=== PATIENT | female | born 1980 | race Caucasian/White ===

== ENCOUNTER 2020-01-04 10:05 | Inpatient (IN) ==
[2020-01-04] MEDS ORDERED: SODIUM CHLORIDE 0.9% 1000ML 1,000 ML IV SCH (10:30)
--- NOTE | 2020-01-04 10:30 | Emergency Department Note ---
Impression & Plan Acute adrenal crisis, Pancytopenia, Neutropenia, Rhabdomyolysis ED Provider Note CHIEF COMPLAINT: Unresponsive, hypoglycemia HISTORY OF PRESENTING ILLNESS: This is a 39-year-old female who presents to the emergency department via EMS with report of being found unresponsive this morning in her house, and was reportedly hypoglycemic with a blood sugar level of 22. The patient started on a bag of [id number], and her repeat blood glucose has improved. She is alert and responsive upon arrival to the emergency department. The patient does not have any history of diabetes or other medical problems and she denies taking any prescribed medications. She denies any history of similar symptoms in the past. She has limited memory of the occurrences this morning, and states she remembers getting up to use the bathroom, but does not remember anything else from this morning. She states that she lives at home with her 2 children. She denies any recent illnesses, fevers or chills. She denies any complaints currently and rates her pain 0/10. She denies any headache, neck pain, chest pain, shortness of breath, feeling dizzy, abdominal pain, back pain, nausea or vomiting, urinary complaints, or unusual rash. REVIEW OF SYSTEMS: A complete 10 point review of systems was reviewed with the patient with pertinent positives and negatives as per history of present illness. All else were negative. PAST MEDICAL HISTORY: Patient denies any past medical or surgical history SOCIAL HISTORY: Lives at home with children, she denies tobacco use, alcohol use, or recreational drug use ALLERGIES: Patient denies any known drug allergies PHYSICAL EXAM: CONSTITUTIONAL: Awake, but sluggish to respond. Follows commands without difficulty. Cooperative and in no acute distress. Pale appearing. HEENT: Normocephalic, atraumatic. PERRL, EOMI with no nystagmus. TMs normal with no hemotympanum. Pharynx normal. NECK: Supple, full active range of motion without discomfort. No midline tenderness to palpation of the cervical spine. RESPIRATORY: Clear to auscultation bilaterally with no wheezing, crackles, rhonchi or stridor. Equal expansion bilaterally. CARDIOVASCULAR: Regular rate and rhythm with no murmurs, rubs or gallops. Normal peripheral perfusion. No edema. GASTROINTESTINAL: Soft, nontender, nondistended. No palpable masses or HSM. Bowel sounds present in all quadrants. No CVA tenderness bilaterally. MUSCULOSKELETAL: Full range of motion of all joints without discomfort. INTEGUMENTARY: No rash or other significant dermatologic conditions noted. NEUROLOGIC: Alert and oriented X 4 with normal affect. Cranial nerves II-XII grossly intact, no pronator drift. No focal neurologic deficits noted. 5/5 strength in all 4 extremities, sensation intact to light touch in all 4 extremities. ED COURSE AND MEDICAL DECISION MAKING: CC: Patient presenting with complaint of unresponsive episode, hypoglycemia DIFFERENTIAL DIAGNOSIS: Includes, but not limited to hypoglycemia, electrolyte abnormality, cardiac dysrhythmia, syncope, fall, overdose, adrenal crisis, myxedema coma, rhabdomyolysis, dehydration, acute kidney injury, tickborne illness, among others. INTERPRETATION OF LABS: Pancytopenia and neutropenia, no significant electrolyte abnormalities, mildly elevated creatinine with a normal BUN, AST elevated with a normal ALT, total bilirubin, and alk phos. Total creatinine kinase is significantly elevated. TSH and free T4 are significantly low. Random cortisol level is significantly low. UA appears negative for infection. Ethyl alcohol, acetaminophen, salicylate levels, and urine drug screen are all negative. Lyme IgG/IgM are negative. Anaplasmosis and babesiosis pending. IMAGING: CT head/brain wo con CLINICAL HISTORY: 39 years-old Female with unresponsive episode, possible head injury. Acutely altered mental status. Unresponsive patient. TECHNIQUE: Multiple axial CT images of the head were obtained without contrast. A dose lowering technique was utilized adhering to the principles of ALARA. CT DOSE: 614.27 mGy.cm COMPARISON: None. FINDINGS: No acute intracranial hemorrhage, midline shift, intracranial mass, hydrocephalus, territorial ischemia or abnormal extra-axial collection. The calvarium is intact. The paranasal sinuses, mastoid air cells, and middle ear cavities are clear. IMPRESSION: No acute intracranial abnormality. ----- XR chest 1V portable CLINICAL HISTORY: syncope COMPARISON STUDY: No previous studies for comparison. FINDINGS: Lung volumes are at the lower limits of normal. Lungs are clear. There is no pneumothorax or pleural effusion. Cardiac size is normal. Mediastinal contours are normal. There is no evidence for pulmonary edema. IMPRESSION: No acute cardiopulmonary findings. EKG: Shows a probable sinus rhythm with a rate of 79 bpm, interpretation is limited due to poor data quality, no ST elevation or depression, no ectopy by my interpretation. No previous EKGs available for comparison. MEDICATION RECONCILIATION: I attest that I have personally reviewed the patient's current medication list. INITIAL VITAL SIGNS REVIEW: I reviewed the patient's initial vital signs and interpret them as follows: T: Afebrile; BP: Normotensive; HR: Within normal limit; RR: Within normal limits; Pulse Ox: Within normal limits on room air. MDM SUMMARY: Patient was evaluated at bedside, history and physical exam performed. Patient is awake, but is sluggish and slow to follow commands. She is oriented to self, but is not able to provide much history. No focal neurologic deficits on exam. The patient does appear pale and is noted to have dry skin, she states this is chronic. Cardiac monitoring: An order was placed for continuous cardiac monitoring. The monitor shows a rate of 78 bpm with normal sinus rhythm. EKG reviewed at bedside, which appears to be sinus rhythm with no acute ischemic changes. Orders were placed at bedside for labs including TSH with reflex T4, random cortisol level, and creatinine kinase, as well as acetaminophen, salicylate, medical alcohol, and urine drug screen, serum , IV fluid bolus for hydration, chest x-ray and head CT to evaluate for unresponsive involved. Patient discussed with Dr. Batres, who agrees with my assessment, plan, and disposition. Labs and imaging reviewed as above, numerous lab abnormalities noted including pancytopenia, neutropenia, elevated CK lysis, significantly low TSH and free T4 as well as significantly low cortisol level. Drug screen, acetaminophen, salicylate, and alcohol are all negative. Additional testing for tickborne illnesses, vitamin B12 and folate levels were ordered due to the anemia. X-ray is clear with no findings and CT of the head shows no acute intracranial abnormality. Additional history was obtained from the patient's mother by nursing staff, who reported a history of a pituitary tumor that was removed about 13 years ago. I discussed this with the patient, she states she used to take hydrocortisone and levothyroxine, but she stopped taking these medications some time ago. She states that she moved to this state from [place] about 5 years ago, and she notes that she has not set up with the PCP. I believe she has most likely been off of these medications for the last several years. Given the nonfunctioning thyroid and low cortisol levels with a history of a pituitary tumor, I do suspect the patient is in adrenal crisis. I spoke with Dr. Carbajal, [facility] Hospitalist, who agrees to evaluate the patient for admission. He did request that the patient have an MRI of the brain for further evaluation of the pituitary tumor, this was ordered. Patient reassessed multiple times throughout ED stay, she has remained hemodynamically stable, and continues to remain awake and cooperative. No changes in neuro status on reassessment. The patient was updated on all results and plan for admission, she verbalized understanding and was agreeable to this plan. All questions were answered at this time to the best of my ability. The patient was stable at time of admission. The chart was completed utilizing [employer] Speech voice recognition software. Grammatical errors, random word insertions, pronoun errors, and incomplete sentences are an occasional consequence of this system due to software limitations, ambient noise, and hardware issues. Any formal questions or concerns about the content, text, or information contained within the body of this dictation should be directly addressed to the nurse practitioner for clarification. Past Med/Surg History Social History Smoking Status: Never smoker Hx Alcohol Use: No Hx Substance Use: No Preferred Language: Turkish Communication Ability: Effective Communication Ability Comment: baseline slurred speech Tub Washer Required: No Beliefs That Will Affect Care: None Current Living Situation: Family Current Living Situation Comment: 19 yo and 14 yo sons at home Other Information That Helps Us Care for You: No Feels Safe at Home: Yes Safety Concerns: Feels Safe At This Time Assistive Devices: Glasses Allergies Allergies Allergy/AdvReac Type Severity Reaction Status Date / Time No Known Allergies Allergy Unverified 01/04/20 11:09 Home Meds Home Medications Medication Instructions Recorded Confirmed No Known Home Medications 01/04/20 01/04/20 Results & Data (ED) Vital Signs Vital Signs - 24 hr 01/04/20 10:16 01/04/20 10:31 01/04/20 10:54 Temperature 36.3 C L Temperature Source Oral Pulse Rate 76 Pulse Rate from SpO2 Sensor Respiratory Rate 16 15 Blood Pressure 110/86 91/73 L Blood Pressure Mean 94 77 Pulse Oximetry 99 100 98 Oxygen Delivery Method Room Air Room Air Sepsis Recent Fever Within 48 Hours No Sepsis New/Unexplained Change in Mental Status N/A Sepsis Action Taken by Nursing No Action Required 01/04/20 11:01 01/04/20 11:32 01/04/20 12:01 Temperature Temperature Source Pulse Rate 80 77 72 Pulse Rate from SpO2 Sensor 81 77 73 Respiratory Rate 13 14 14 Blood Pressure 110/82 99/87 L 98/75 L Blood Pressure Mean 84 92 82 Pulse Oximetry 100 100 100 Oxygen Delivery Method Sepsis Recent Fever Within 48 Hours Sepsis New/Unexplained Change in Mental Status Sepsis Action Taken by Nursing 01/04/20 13:00 01/04/20 13:30 01/04/20 14:00 Temperature Temperature Source Pulse Rate 75 76 73 Pulse Rate from SpO2 Sensor 75 77 73 Respiratory Rate 15 11 L 11 L Blood Pressure 98/71 L 96/78 L 91/73 L Blood Pressure Mean 80 81 75 Pulse Oximetry 100 98 99 Oxygen Delivery Method Sepsis Recent Fever Within 48 Hours Sepsis New/Unexplained Change in Mental Status Sepsis Action Taken by Nursing Laboratory Data Result diagrams: 01/04/20 10:15 01/04/20 10:15 Lab Results 01/04/20 01/04/20 01/04/20 Range/Units 10:15 10:15 10:15 WBC 3.06 L (4.8-10.8) K/uL RBC 3.35 L (4.2-5.4) M/uL Hgb 9.9 L (12.0-16.0) g/dL Hct 29.4 L (37-47) % MCV 87.8 (80-100) fL MCH 29.6 (25-34) pg MCHC 33.7 (32-36) g/dL RDW Std Deviation 50.4 H (36.4-46.3) fL RDW Coeff of Lan 15.6 H (11.5-14.5) % Plt Count 87 L (130-400) K/uL MPV 10.5 H (7.4-10.4) fL Immature Gran % (Auto) 0.0 % Neut % (Auto) 27.7 % Lymph % (Auto) 65.7 % Tripp % (Auto) 3.3 % Eos % (Auto) 3.3 % Baso % (Auto) 0.0 % Neut # (Auto) 0.85 L* (1.4-6.5) K/uL Lymph # (Auto) 2.01 (1.2-3.4) K/uL Tripp # (Auto) 0.10 L (0.11-0.59) K/uL Eos # (Auto) 0.10 (0-0.5) K/uL Baso # (Auto) 0.00 (0-0.2) K/uL Immature Gran # (Auto) 0.00 (0.00-0.02) K/uL Platelet Estimate Decreased L (Normal) Sodium 137 (136-145) mmol/L Potassium 3.4 L (3.5-5.1) mmol/L Chloride 107 (98-107) mmol/L Carbon Dioxide 27 (21-32) mmol/L Anion Gap 3.0 (3-11) BUN 11 (7-18) mg/dl Creatinine 1.23 H (0.6-1.2) mg/dl Est Cr Clr Drug Dosing 51.4 ml/min Est GFR ( Amer) 64.0 Est GFR (Non-Af Amer) 55.2 BUN/Creatinine Ratio 9.3 L (10-20) Glucose 160 H (70-99) mg/dl POC Glucose (70-99) mg/dl Calcium 8.5 (8.5-10.1) mg/dl Total Bilirubin 0.4 (0.2-1) mg/dl AST 118 H (15-37) U/L ALT 40 (12-78) U/L Alkaline Phosphatase 36 L (45-117) U/L Total Creatine Kinase 3763 H (26-192) U/L Total Protein 6.7 (6.4-8.2) gm/dl Albumin 3.6 (3.4-5.0) gm/dl Globulin 3.1 (2.5-4.0) gm/dl Albumin/Globulin Ratio 1.2 (0.9-2) Vitamin B12 (193-986) pg/ml Folate (>5.38) ng/ml TSH < 0.005 L (0.300-4.500) uIu/ml Free T4 < 0.10 L (0.8-1.6) ng/dl Prolactin ng/ml HCG, Qual (Negative) Random Cortisol mcg/dl Urine Color Urine Appearance (Clear) Urine pH (4.5-7.5) Ur Specific [place] (1.000-1.030) Urine Protein (Negative) Urine Glucose (UA) (Negative) Urine Ketones (Negative) Urine Blood (Negative) Urine Nitrite (Negative) Urine Bilirubin (Negative) Urine Urobilinogen (Negative) Ur Leukocyte Esterase (Negative) Urine WBC (Auto) (0-5) /hpf Urine RBC (Auto) (0-4) /hpf U Hyaline Cast (Auto) (0-5) /lpf U Epithel Cells (Auto) (0-5) /lpf Urine Bacteria (Auto) (Negative) Salicylates < 1.7 L (2.8-20) mg/dl Urine Opiates Screen (Neg) Ur Methadone, Qual (Neg) Acetaminophen < 2 L (10-30) ug/ml Urine Barbiturates (Neg) Ur Phencyclidine (PCP) (Neg) U Amphetamin/Meth Scrn (Neg) MDMA (Ecstasy) Screen (Neg) U Benzodiazepines Scrn (Neg) Ur Cocaine Metabolite (Neg) U Marijuana (THC) Screen (Neg) Ethyl Alcohol mg/dL (0-3) mg/dl Anaplasma Smear See Comment Lyme Disease IgG Ab (Negative) Lyme Disease IgM Ab (Negative) 01/04/20 01/04/20 01/04/20 Range/Units 10:15 10:17 10:41 WBC (4.8-10.8) K/uL RBC (4.2-5.4) M/uL Hgb (12.0-16.0) g/dL Hct (37-47) % MCV (80-100) fL MCH (25-34) pg MCHC (32-36) g/dL RDW Std Deviation (36.4-46.3) fL RDW Coeff of Lan (11.5-14.5) % Plt Count (130-400) K/uL MPV (7.4-10.4) fL Immature Gran % (Auto) % Neut % (Auto) % Lymph % (Auto) % Tripp % (Auto) % Eos % (Auto) % Baso % (Auto) % Neut # (Auto) (1.4-6.5) K/uL Lymph # (Auto) (1.2-3.4) K/uL Tripp # (Auto) (0.11-0.59) K/uL Eos # (Auto) (0-0.5) K/uL Baso # (Auto) (0-0.2) K/uL Immature Gran # (Auto) (0.00-0.02) K/uL Platelet Estimate (Normal) Sodium (136-145) mmol/L Potassium (3.5-5.1) mmol/L Chloride (98-107) mmol/L Carbon Dioxide (21-32) mmol/L Anion Gap (3-11) BUN (7-18) mg/dl Creatinine (0.6-1.2) mg/dl Est Cr Clr Drug Dosing ml/min Est GFR ( Amer) Est GFR (Non-Af Amer) BUN/Creatinine Ratio (10-20) Glucose (70-99) mg/dl POC Glucose 164 H (70-99) mg/dl Calcium (8.5-10.1) mg/dl Total Bilirubin (0.2-1) mg/dl AST (15-37) U/L ALT (12-78) U/L Alkaline Phosphatase (45-117) U/L Total Creatine Kinase (26-192) U/L Total Protein (6.4-8.2) gm/dl Albumin (3.4-5.0) gm/dl Globulin (2.5-4.0) gm/dl Albumin/Globulin Ratio (0.9-2) Vitamin B12 (193-986) pg/ml Folate (>5.38) ng/ml TSH (0.300-4.500) uIu/ml Free T4 (0.8-1.6) ng/dl Prolactin ng/ml HCG, Qual (Negative) Random Cortisol mcg/dl Urine Color Yellow Urine Appearance Clear (Clear) Urine pH 6.5 (4.5-7.5) Ur Specific [place] 1.009 (1.000-1.030) Urine Protein Negative (Negative) Urine Glucose (UA) 1+ H (Negative) Urine Ketones Trace H (Negative) Urine Blood Negative (Negative) Urine Nitrite Negative (Negative) Urine Bilirubin Negative (Negative) Urine Urobilinogen Negative (Negative) Ur Leukocyte Esterase Trace H (Negative) Urine WBC (Auto) 1-5 (0-5) /hpf Urine RBC (Auto) 0-4 (0-4) /hpf U Hyaline Cast (Auto) 1-5 (0-5) /lpf U Epithel Cells (Auto) 5-10 H (0-5) /lpf Urine Bacteria (Auto) Negative (Negative) Salicylates (2.8-20) mg/dl Urine Opiates Screen (Neg) Ur Methadone, Qual (Neg) Acetaminophen (10-30) ug/ml Urine Barbiturates (Neg) Ur Phencyclidine (PCP) (Neg) U Amphetamin/Meth Scrn (Neg) MDMA (Ecstasy) Screen (Neg) U Benzodiazepines Scrn (Neg) Ur Cocaine Metabolite (Neg) U Marijuana (THC) Screen (Neg) Ethyl Alcohol mg/dL (0-3) mg/dl Anaplasma Smear Lyme Disease IgG Ab Negative (Negative) Lyme Disease IgM Ab Negative (Negative) 01/04/20 01/04/20 01/04/20 Range/Units 10:41 11:19 11:19 WBC (4.8-10.8) K/uL RBC (4.2-5.4) M/uL Hgb (12.0-16.0) g/dL Hct (37-47) % MCV (80-100) fL MCH (25-34) pg MCHC (32-36) g/dL RDW Std Deviation (36.4-46.3) fL RDW Coeff of Lan (11.5-14.5) % Plt Count (130-400) K/uL MPV (7.4-10.4) fL Immature Gran % (Auto) % Neut % (Auto) % Lymph % (Auto) % Tripp % (Auto) % Eos % (Auto) % Baso % (Auto) % Neut # (Auto) (1.4-6.5) K/uL Lymph # (Auto) (1.2-3.4) K/uL Tripp # (Auto) (0.11-0.59) K/uL Eos # (Auto) (0-0.5) K/uL Baso # (Auto) (0-0.2) K/uL Immature Gran # (Auto) (0.00-0.02) K/uL Platelet Estimate (Normal) Sodium (136-145) mmol/L Potassium (3.5-5.1) mmol/L Chloride (98-107) mmol/L Carbon Dioxide (21-32) mmol/L Anion Gap (3-11) BUN (7-18) mg/dl Creatinine (0.6-1.2) mg/dl Est Cr Clr Drug Dosing ml/min Est GFR ( Amer) Est GFR (Non-Af Amer) BUN/Creatinine Ratio (10-20) Glucose (70-99) mg/dl POC Glucose (70-99) mg/dl Calcium (8.5-10.1) mg/dl Total Bilirubin (0.2-1) mg/dl AST (15-37) U/L ALT (12-78) U/L Alkaline Phosphatase (45-117) U/L Total Creatine Kinase (26-192) U/L Total Protein (6.4-8.2) gm/dl Albumin (3.4-5.0) gm/dl Globulin (2.5-4.0) gm/dl Albumin/Globulin Ratio (0.9-2) Vitamin B12 (193-986) pg/ml Folate (>5.38) ng/ml TSH (0.300-4.500) uIu/ml Free T4 (0.8-1.6) ng/dl Prolactin ng/ml HCG, Qual (Negative) Random Cortisol < 0.50 mcg/dl Urine Color Urine Appearance (Clear) Urine pH (4.5-7.5) Ur Specific [place] (1.000-1.030) Urine Protein (Negative) Urine Glucose (UA) (Negative) Urine Ketones (Negative) Urine Blood (Negative) Urine Nitrite (Negative) Urine Bilirubin (Negative) Urine Urobilinogen (Negative) Ur Leukocyte Esterase (Negative) Urine WBC (Auto) (0-5) /hpf Urine RBC (Auto) (0-4) /hpf U Hyaline Cast (Auto) (0-5) /lpf U Epithel Cells (Auto) (0-5) /lpf Urine Bacteria (Auto) (Negative) Salicylates (2.8-20) mg/dl Urine Opiates Screen Neg (Neg) Ur Methadone, Qual Neg (Neg) Acetaminophen (10-30) ug/ml Urine Barbiturates Neg (Neg) Ur Phencyclidine (PCP) Neg (Neg) U Amphetamin/Meth Scrn Neg (Neg) MDMA (Ecstasy) Screen Neg (Neg) U Benzodiazepines Scrn Neg (Neg) Ur Cocaine Metabolite Neg (Neg) U Marijuana (THC) Screen Neg (Neg) Ethyl Alcohol mg/dL < 3.0 (0-3) mg/dl Anaplasma Smear Lyme Disease IgG Ab (Negative) Lyme Disease IgM Ab (Negative) 01/04/20 01/04/20 01/04/20 Range/Units 11:19 11:19 11:31 WBC (4.8-10.8) K/uL RBC (4.2-5.4) M/uL Hgb (12.0-16.0) g/dL Hct (37-47) % MCV (80-100) fL MCH (25-34) pg MCHC (32-36) g/dL RDW Std Deviation (36.4-46.3) fL RDW Coeff of Lan (11.5-14.5) % Plt Count (130-400) K/uL MPV (7.4-10.4) fL Immature Gran % (Auto) % Neut % (Auto) % Lymph % (Auto) % Tripp % (Auto) % Eos % (Auto) % Baso % (Auto) % Neut # (Auto) (1.4-6.5) K/uL Lymph # (Auto) (1.2-3.4) K/uL Tripp # (Auto) (0.11-0.59) K/uL Eos # (Auto) (0-0.5) K/uL Baso # (Auto) (0-0.2) K/uL Immature Gran # (Auto) (0.00-0.02) K/uL Platelet Estimate (Normal) Sodium (136-145) mmol/L Potassium (3.5-5.1) mmol/L Chloride (98-107) mmol/L Carbon Dioxide (21-32) mmol/L Anion Gap (3-11) BUN (7-18) mg/dl Creatinine (0.6-1.2) mg/dl Est Cr Clr Drug Dosing ml/min Est GFR ( Amer) Est GFR (Non-Af Amer) BUN/Creatinine Ratio (10-20) Glucose (70-99) mg/dl POC Glucose 132 H (70-99) mg/dl Calcium (8.5-10.1) mg/dl Total Bilirubin (0.2-1) mg/dl AST (15-37) U/L ALT (12-78) U/L Alkaline Phosphatase (45-117) U/L Total Creatine Kinase (26-192) U/L Total Protein (6.4-8.2) gm/dl Albumin (3.4-5.0) gm/dl Globulin (2.5-4.0) gm/dl Albumin/Globulin Ratio (0.9-2) Vitamin B12 (193-986) pg/ml Folate (>5.38) ng/ml TSH (0.300-4.500) uIu/ml Free T4 (0.8-1.6) ng/dl Prolactin < 0.30 ng/ml HCG, Qual Negative (Negative) Random Cortisol mcg/dl Urine Color Urine Appearance (Clear) Urine pH (4.5-7.5) Ur Specific [place] (1.000-1.030) Urine Protein (Negative) Urine Glucose (UA) (Negative) Urine Ketones (Negative) Urine Blood (Negative) Urine Nitrite (Negative) Urine Bilirubin (Negative) Urine Urobilinogen (Negative) Ur Leukocyte Esterase (Negative) Urine WBC (Auto) (0-5) /hpf Urine RBC (Auto) (0-4) /hpf U Hyaline Cast (Auto) (0-5) /lpf U Epithel Cells (Auto) (0-5) /lpf Urine Bacteria (Auto) (Negative) Salicylates (2.8-20) mg/dl Urine Opiates Screen (Neg) Ur Methadone, Qual (Neg) Acetaminophen (10-30) ug/ml Urine Barbiturates (Neg) Ur Phencyclidine (PCP) (Neg) U Amphetamin/Meth Scrn (Neg) MDMA (Ecstasy) Screen (Neg) U Benzodiazepines Scrn (Neg) Ur Cocaine Metabolite (Neg) U Marijuana (THC) Screen (Neg) Ethyl Alcohol mg/dL (0-3) mg/dl Anaplasma Smear Lyme Disease IgG Ab (Negative) Lyme Disease IgM Ab (Negative) 01/04/20 Range/Units 14:25 WBC (4.8-10.8) K/uL RBC (4.2-5.4) M/uL Hgb (12.0-16.0) g/dL Hct (37-47) % MCV (80-100) fL MCH (25-34) pg MCHC (32-36) g/dL RDW Std Deviation (36.4-46.3) fL RDW Coeff of Lan (11.5-14.5) % Plt Count (130-400) K/uL MPV (7.4-10.4) fL Immature Gran % (Auto) % Neut % (Auto) % Lymph % (Auto) % Tripp % (Auto) % Eos % (Auto) % Baso % (Auto) % Neut # (Auto) (1.4-6.5) K/uL Lymph # (Auto) (1.2-3.4) K/uL Tripp # (Auto) (0.11-0.59) K/uL Eos # (Auto) (0-0.5) K/uL Baso # (Auto) (0-0.2) K/uL Immature Gran # (Auto) (0.00-0.02) K/uL Platelet Estimate (Normal) Sodium (136-145) mmol/L Potassium (3.5-5.1) mmol/L Chloride (98-107) mmol/L Carbon Dioxide (21-32) mmol/L Anion Gap (3-11) BUN (7-18) mg/dl Creatinine (0.6-1.2) mg/dl Est Cr Clr Drug Dosing ml/min Est GFR ( Amer) Est GFR (Non-Af Amer) BUN/Creatinine Ratio (10-20) Glucose (70-99) mg/dl POC Glucose (70-99) mg/dl Calcium (8.5-10.1) mg/dl Total Bilirubin (0.2-1) mg/dl AST (15-37) U/L ALT (12-78) U/L Alkaline Phosphatase (45-117) U/L Total Creatine Kinase (26-192) U/L Total Protein (6.4-8.2) gm/dl Albumin (3.4-5.0) gm/dl Globulin (2.5-4.0) gm/dl Albumin/Globulin Ratio (0.9-2) Vitamin B12 531 (193-986) pg/ml Folate 15.80 (>5.38) ng/ml TSH (0.300-4.500) uIu/ml Free T4 (0.8-1.6) ng/dl Prolactin ng/ml HCG, Qual (Negative) Random Cortisol mcg/dl Urine Color Urine Appearance (Clear) Urine pH (4.5-7.5) Ur Specific [place] (1.000-1.030) Urine Protein (Negative) Urine Glucose (UA) (Negative) Urine Ketones (Negative) Urine Blood (Negative) Urine Nitrite (Negative) Urine Bilirubin (Negative) Urine Urobilinogen (Negative) Ur Leukocyte Esterase (Negative) Urine WBC (Auto) (0-5) /hpf Urine RBC (Auto) (0-4) /hpf U Hyaline Cast (Auto) (0-5) /lpf U Epithel Cells (Auto) (0-5) /lpf Urine Bacteria (Auto) (Negative) Salicylates (2.8-20) mg/dl Urine Opiates Screen (Neg) Ur Methadone, Qual (Neg) Acetaminophen (10-30) ug/ml Urine Barbiturates (Neg) Ur Phencyclidine (PCP) (Neg) U Amphetamin/Meth Scrn (Neg) MDMA (Ecstasy) Screen (Neg) U Benzodiazepines Scrn (Neg) Ur Cocaine Metabolite (Neg) U Marijuana (THC) Screen (Neg) Ethyl Alcohol mg/dL (0-3) mg/dl Anaplasma Smear Lyme Disease IgG Ab (Negative) Lyme Disease IgM Ab (Negative) Administered Medications Potassium Chloride/Dextrose/Sod Cl (D5nss + 20meq Kcl) 20 meq in 1,000 mls @ 100 mls/hr IV .Q10H STEPHANIE Stop: 02/03/20 15:59 Last Admin: 01/04/20 15:59 Dose: 100 mls/hr Documented by: [id number] Discontinued Medications Sodium Chloride (Nss 1000ml) 1,000 mls @ 999 mls/hr IV .Q1H1M STEPHANIE Stop: 01/04/20 11:30 Last Infusion: 01/04/20 11:46 Dose: 0 mls/hr Documented by: [id number] Admin: 01/04/20 10:45 Dose: 999 mls/hr Documented by: [id number] Sodium Chloride (Nss 1000ml) 1,000 mls @ 999 mls/hr IV .Q1H1M ONE Stop: 01/04/20 13:36 Last Infusion: 01/04/20 13:48 Dose: 0 mls/hr Documented by: [id number] Admin: 01/04/20 12:47 Dose: 999 mls/hr Documented by: [id number] Discharge Plan Visit Data Chief Complaint: Hypoglycemia Stated Complaint: HYPOGLYCEMIA/UNRESPONSIVE EPISODE ED Provider: Gretchen Batres ED Midlevel Provider: Cleo Delgado Discharge Problem: Acute adrenal crisis, Pancytopenia, Neutropenia, Rhabdomyolysis Patient Disposition: Admitted As Inpatient Discharge Instructions Interventions: ED Discharge Assessment Last Done: 01/04/20 15:13 Discharge Problem: Neutropenia Qualifiers: Neutropenia type: unspecified Qualified Code(s): D70.9 - Neutropenia, unspecified
[2020-01-04 10:43] LABS: Alanine Aminotransferase 40 U/L (12-78); Albumin Level 3.6 gm/dl (3.4-5.0); Aspartate Aminotransferase 118 U/L (15-37); BUN Creatinine Ratio 9.3 (10-20); Blood Urea Nitrogen 11 mg/dl (7-18); Calcium 8.5 mg/dl (8.5-10.1); Carbon Dioxide 27 mmol/L (21-32); Chloride 107 mmol/L (98-107); Creatinine Clr Calc Pharmacy 51.4 ml/min; Est GFR (Non-African American) 55.2; Glucose 160 mg/dl (70-99); Potassium 3.4 mmol/L (3.5-5.1); Sodium 137 mmol/L (136-145)
[2020-01-04 10:44] LABS: Hematocrit (blood only) 29.4 % (37-47); Hemoglobin 9.9 g/dL (12.0-16.0); Mean Corpuscular Hemoglobin 29.6 pg (25-34); Mean Corpuscular Hgb Conc 33.7 g/dL (32-36); Mean Corpuscular Volume 87.8 fL (80-100); RDW Coefficient of Variation 15.6 % (11.5-14.5); RDW Standard Deviation 50.4 fL (36.4-46.3); Red Blood Count 3.35 M/uL (4.2-5.4); White Blood Count 3.06 K/uL (4.8-10.8)
--- NOTE | 2020-01-04 10:44 | XRay Report ---
XR chest 1V portable CLINICAL HISTORY: syncope COMPARISON STUDY: No previous studies for comparison. FINDINGS: Lung volumes are at the lower limits of normal. Lungs are clear. There is no pneumothorax o r pleural effusion. Cardiac size is normal. Mediastinal contours are normal. There is no evidence for pulmonary edema. IMPRESSION: No acute cardiopulmonary findings. ACT 112: Negative or not required by law. Electronically signed by: Gaurav Elam M.D. 01/04/2020 10:42 AM
--- NOTE | 2020-01-04 10:53 | CT Scan Report ---
CT head/brain wo con CLINICAL HISTORY: 39 years-old Female with unresponsive episode, possible head injury. Acutely alter ed mental status. Unresponsive patient. TECHNIQUE: Multiple axial CT images of the head were obtained without contrast. A dose lowering tech nique was utilized adhering to the principles of ALARA. CT DOSE: 614.27 mGy.cm COMPARISON: None. FINDINGS: No acute intracranial hemorrhage, midline shift, intracranial mass, hydrocephalus, territorial ischem ia or abnormal extra-axial collection. The calvarium is intact. The paranasal sinuses, mastoid air cells, and middle ear cavities are clear . IMPRESSION: No acute intracranial abnormality. ACT 112: Negative or not required by law. The above report was generated using voice recognition software. It may contain grammatical, syntax o r spelling errors. Electronically signed by: Haresh Braga M.D. 01/04/2020 10:52 AM
[2020-01-04 10:57] LABS: Albumin Globulin Ratio 1.2 (0.9-2); Alkaline Phosphatase 36 U/L (45-117); Bilirubin,Total 0.4 mg/dl (0.2-1); Creatine Kinase 3763 U/L (26-192); Globulin 3.1 gm/dl (2.5-4.0); Thyroid Stimulating Hormone < 0.005 uIu/ml (0.300-4.500); Total Protein 6.7 gm/dl (6.4-8.2)
[2020-01-04 11:01] LABS: Acetaminophen < 2 ug/ml (10-30); Salicylate < 1.7 mg/dl (2.8-20)
[2020-01-04 11:07] LABS: Appearance Urine Clear (Clear); Bacteria Urine Automated Negative (Negative); Bilirubin Urine Negative (Negative); Blood Urine Negative (Negative); Color Urine Yellow; Glucose Urine UA 1+ (Negative); Ketones Urine Trace (Negative); Leukocyte Esterase Urine Trace (Negative); Nitrite Urine Negative (Negative); Protein Urine Negative (Negative); RBC Urine Automated 0-4 /hpf (0-4); Specific Gravity Urine 1.009 (1.000-1.030); Urobilinogen Urine Negative (Negative); pH Urine 6.5 (4.5-7.5)
[2020-01-04 11:09] LABS: T4 Free Thyroxine < 0.10 ng/dl (0.8-1.6)
[2020-01-04 11:10] LABS: Mean Platelet Volume 10.5 fL (7.4-10.4); Platelet Count 87 K/uL (130-400)
[2020-01-04 11:22] LABS: Amphetamines+Metham, Urine Neg (Neg); Barbiturates, Urine Neg (Neg); Benzodiazepine, Urine Neg (Neg); Cocaine, Urine Neg (Neg); MDMA (Ecstacy), Urine Neg (Neg); Methadone, Urine Neg (Neg); Opiate, Urine Neg (Neg); Phencyclidine, Urine Neg (Neg)
[2020-01-04 11:35] LABS: Eosinophils % (auto) 3.3 %; Lymphocytes # (auto) 2.01 K/uL (1.2-3.4); Lymphocytes % (auto) 65.7 %; Monocytes % (auto) 3.3 %; Neutrophils # (auto) 0.85 K/uL (1.4-6.5); Neutrophils % (auto) 27.7 %
[2020-01-04 11:38] LABS: Platelet Estimate Decreased (Normal)
[2020-01-04 11:52] LABS: Pregnancy Test, Serum Negative (Negative)
--- NOTE | 2020-01-04 12:23 | Electrocardiogram Report ---
Test Reason : Blood Pressure : / mmHG Vent. Rate : 079 BPM Atrial Rate : 081 BPM P-R Int : 000 ms QRS Dur : 074 ms QT Int : 464 ms P-R-T Axes : 000 075 057 degrees QTc Int : 532 ms Poor data quality, interpretation may be adversely affected Probable Sinus rhythm Low voltage QRS Cannot rule out Septal infarct , age undetermined Abnormal ECG No previous ECGs available Confirmed by Roberto Danielson ([id number]) on 01/04/2020 12:23:10 PM Referred By: Confirmed By:Roberto Danielson
[2020-01-04] MEDS ORDERED: SODIUM CHLORIDE 0.9% 1000ML 1,000 ML IV ONE (12:36)
[2020-01-04 13:15] LABS: Lyme Ab IgG w/WB Rflx Negative (Negative)
[2020-01-04 13:16] LABS: Lyme Ab IgM w/WB Rflx Negative (Negative)
--- NOTE | 2020-01-04 14:11 | History & Physical Report ---
Date of Service January 04, 2020 Assessment & Plan (1) Panhypopituitarism: Allie London is a 39yo F with a PMHx of pituitary surgery who presents after she was found down with a glucose of 22. Panhypopituarism - TSH undetectable - fT4 undetectable - Random Cortisol undetectable - Pt previously on hydrocortisone and thyroid replacement, pt reports she has not taken any of her medications in ~5 years. - Glucose 22 in field by EMS, 120's on D10 - MRI pending -Renal and, aldosterone, prolactin, ACTH a.m. cortisol pending. Defer cosyntropin stim, 24-hour cortisol. - Hydrocortisone 25mg/kg/day as 4 divided doses (1,200mg TDD = 300mg Q6H) - Hold T4 repletion until adrenal function and ACTH reserve has been treated to prevent residual cortisol clearance. T4 1.6mcg/kg (~105mcg/day) once adrenal stores adequate. - Fludrocortisone not indicated at this time - GH pending, no repletion at this time - No excess diuresis/DI, DDAVP not indicated at this time Profound hyponatremia, sodium wasting appreciated Blood pressure 110/82 on admission Hypoglycemia BSG 22 on admission in the setting of panhypopituitarisim BSG every 4 hours or AC/HS, D5 NSS plus KCl IVF M - Hypoglycemia protocol ordered Pancytopenia with neutropenia No clear etiology Normocytic B12/folate pending Lyme negative, Babesia pending, anaplasmosis smear negative - Anaplasmosis DNA pending Neutropenic precautions Hematology consulted Hypokalemia BMP daily Replete per protocol DVT prophylaxis: Heparin every 8 hours Diet: Regular Disposition: PCU telemetry CODE STATUS: Full code History of Present Illness Chief Complaint: Found unconcious, panhypopit Primary Care Provider: NO PCP Allie London is a 39yo F with a history of pituitary surgery who presents after being found down with a BSG of 22 at her home. Allie reports she does not remember passing out, and has felt well in the previous few days. She reports she has a history of pituitary surgery and panhypopituitarism. She had Pituitary surgery at [facility] in [place] 13 years ago, but does not remember why. She reports that she was on thyroid replacement and hydrocortisone but stopped taking these medications 5 years ago and has overall felt "okay ". She reports that she has not had any fevers, chills, sweats, shortness of breath, syncope, presyncope, difficulty breathing, dizziness when standing, palpitations, or leg/eye swelling before day of admission, but notes that her hair does tend to fall out and her skin is often very dry. She reports she has 2 children at home who are in good health and have not been sick. She reports that she has been under very high level of stress and is currently going through a divorce, which has been very stressful to her but otherwise feels that her health has been good. 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 Denies other medical history Medications: Endorses past use of thyroid replacement hydrocortisone with no use in the last 5 years. Denies other medications Allergies: Denies medication allergies Surgical history: Pituitary surgery, denies other surgery CODE STATUS: Full code Allergies Allergy/AdvReac Type Severity Reaction Status Date / Time No Known Allergies Allergy Unverified 01/04/20 11:09 Home Medications Medication Instructions Recorded Confirmed Type No Known Home Medications 01/04/20 01/04/20 History Past Med/Surg History Social History Smoking Status: Never smoker Hx Alcohol Use: No Hx Substance Use: No Preferred Language: Gabonese Communication Ability: Effective Communication Ability Comment: baseline slurred speech Router Operator Required: No Beliefs That Will Affect Care: None Current Living Situation: Family Current Living Situation Comment: 19 yo and 14 yo sons at home Other Information That Helps Us Care for You: No Feels Safe at Home: Yes Safety Concerns: Feels Safe At This Time Assistive Devices: Glasses Review of Systems Review of Systems: Constitutional: Denies fever, chills, malaise, weight change. Endorses cold intolerance. Eyes: Denies double vision, vision change, eye pain ENT: Denies ear pain, sore throat, sinus pain Cardiovascular: Denies Chest pain, chest pressure, palpitations, extremity swelling Respiratory: Denies shortness of breath, cough, sputum production, difficulty breathing Gastrointestinal: Denies abdominal pain, nausea, vomiting, constipation, diarrhea Genitourinary: Denies pain with urination, urinary urgency, urinary frequency Musculoskeletal: Denies weakness, muscle aches/pain, joint aches/pain Integumentary:Denies rash, lesions, bruising Neurological: Denies headache, numbness, tingling, focal weakness Endocrine: Endorses hair frequently falling out, dry skin. Physical Exam Physical Exam: General: Alert and oriented x3, appears fatigued with some psychomotor slowing. No acute distress. Cooperative. Skin: Cool, dry. No hyperpigmentation. HEENT: Atraumatic, normocephalic. Visual acuity grossly intact. Pupils equal and responsive to light and accommodation. Hearing grossly intact. Pulm: CTAB A&P. -wheezes, -rales, -rhonchi. Symmetrical chest rise. No increase work of breathing. No respiratory distress. Cardiac: RRR, -mrg. Radial pulses intact and symmetrical. RUE: 5/5 Shoulder internal rotation, external rotation, flexion, extension, a bduction, adduction 5/5 Elbow flexion/extension, wrist flexion/extension 5/5 safe expert strength, finger flexion/extension, interosseus LUE: 5/5 Elbow flexion/extension, wrist flexion/extension 5/5 safe expert strength, finger flexion/extension, interosseus RLE: 5/5 to hip flexion/extension, ankle dorsiflexion/plantarflexion LLE: 5/5 to hip flexion/extension, ankle dorsiflexion/plantarflexion SENSORY: Normal to touch in upper and lower extremities without deficit or asymmetry Results & Data Results & Data ([facility]) Vital Signs (Past 12 Hours) Vital Signs Temp Pulse Resp BP Pulse Ox 01/04/20 13:30 76 11 L 96/78 L 98 01/04/20 13:00 75 15 98/71 L 100 01/04/20 12:01 72 14 98/75 L 100 01/04/20 11:32 77 14 99/87 L 100 01/04/20 11:01 80 13 110/82 100 01/04/20 10:54 98 01/04/20 10:31 15 91/73 L 100 01/04/20 10:16 36.3 C L 76 16 110/86 99 Supervising Physician Co-Signing Physician Notes Attending addendum: I have physically seen this patient, have supervised the medical residents activities, and agree with the H&P unless as otherwise noted. Assessment and Plan: Panhypopituitarism- patient has stopped her hydrocortisone and thyroid replacements at least 5 years ago. Glucose was 22 and found in the field by EMS, improved to 120s after D10. Check pituitary hormone levels. Order MRI brain with and without contrast attention pituitary Stress dose hydrocortisone. We will need to follow-up with endocrinology. Pancytopenia with neutropenia- Placed on neutropenic precautions Consult hematology. Work-up pending Rhabdomyolysis/acute kidney injury- CK 3763, creatinine 1.23. Follow serial laboratories after IV fluid rehydration. Remaining orders and notations as noted Resident Activity Tracking Resident Involvement: Resident Care Provided Care Provided: Adult Hospital Medicine
[2020-01-04] MEDS: CARBOHYDRATES FOR HYPOGLYCEMIA PO PRN ×3 (15:27→16:10)
[2020-01-04 15:36] LABS: Folate (Folic Acid) 15.8 ng/ml (>5.38)
[2020-01-04] MEDS ORDERED: HYDROCORTISONE SOD SUCCINATE 100 MG/2 ML VIAL IV SCH (15:44)
[2020-01-04] MEDS ORDERED: ACETAMINOPHEN 325 MG TAB PO PRN (15:44)
[2020-01-04] MEDS: D5NSS + 20MEQ KCL 20 MEQ/1,000 ML BAG IV SCH (15:59)
[2020-01-04] MEDS ORDERED: GLUCAGON FOR INJ 1 MG VIAL SQ PRN (16:01)
[2020-01-04] MEDS ORDERED: GLUCOSE 40% GEL 15 GM TUBE PO PRN (16:01)
[2020-01-04] MEDS ORDERED: DEXTROSE 50% 50 ML SYRINGE IV PRN (16:01)
[2020-01-04] MEDS ORDERED: GLUCOSE 10 TABS/TUBE PO PRN (16:01)
[2020-01-04] MEDS: HYDROCORTISONE SOD IV SCH (17:56)
[2020-01-04] MEDS: HEPARIN SOD 5,000 UNIT/0.5 ML VIAL SQ SCH (21:19)
--- NOTE | 2020-01-04 21:22 | Billing Data ---
Date of Service January 04, 2020 Coding Level of Care Code 36245 Initial Inpt Care Lvl 3
[2020-01-04] MEDS ORDERED: HEPARIN SOD 5,000 UNIT/0.5 ML VIAL SQ SCH (22:00)
[2020-01-05] MEDS: HYDROCORTISONE SOD IV SCH ×3 (00:09→12:39)
[2020-01-05] MEDS ORDERED: GADOBUTROL 65ML VIAL IV ONE (01:57)
[2020-01-05] MEDS: D5NSS + 20MEQ KCL 20 MEQ/1,000 ML BAG IV SCH ×2 (05:14→12:39)
[2020-01-05 07:27] LABS: Hematocrit (blood only) 29.6 % (37-47); Hemoglobin 9.8 g/dL (12.0-16.0); Mean Corpuscular Hemoglobin 29.2 pg (25-34); Mean Corpuscular Hgb Conc 33.1 g/dL (32-36); Mean Corpuscular Volume 88.1 fL (80-100); RDW Coefficient of Variation 15.8 % (11.5-14.5); RDW Standard Deviation 51.1 fL (36.4-46.3); Red Blood Count 3.36 M/uL (4.2-5.4); White Blood Count 3.97 K/uL (4.8-10.8)
[2020-01-05 07:36] LABS: Mean Platelet Volume 10.9 fL (7.4-10.4); Platelet Count 98 K/uL (130-400)
[2020-01-05 07:54] LABS: Albumin Level 3.6 gm/dl (3.4-5.0); BUN Creatinine Ratio 6.5 (10-20); Calcium 8.1 mg/dl (8.5-10.1); Creatinine Clr Calc Pharmacy 50.3 ml/min; Est GFR (African American) 57.2; Est GFR (Non-African American) 49.3; Potassium 4.6 mmol/L (3.5-5.1)
[2020-01-05 08:02] LABS: Albumin Globulin Ratio 1.1 (0.9-2); Bilirubin,Total 0.2 mg/dl (0.2-1); Globulin 3.2 gm/dl (2.5-4.0); Total Protein 6.8 gm/dl (6.4-8.2)
[2020-01-05 08:18] LABS: Eosinophils # (auto) 0.01 K/uL (0-0.5); Eosinophils % (auto) 0.3 %; Immature Granulocytes # (auto) 0.01 K/uL (0.00-0.02); Immature Granulocytes % (auto) 0.3 %; Lymphocytes # (auto) 0.87 K/uL (1.2-3.4); Lymphocytes % (auto) 21.9 %; Monocytes # (auto) 0.03 K/uL (0.11-0.59); Monocytes % (auto) 0.8 %; Neutrophils # (auto) 3.05 K/uL (1.4-6.5); Neutrophils % (auto) 76.7 %
--- NOTE | 2020-01-05 08:30 | Magnetic Resonance Report ---
MR brain pituitary wo/w con HISTORY: 39 years-old Female adrenal crisis, hx pituitary tumor acutely unresponsive patient with hi story of pituitary lesion COMPARISON: Head CT 01/04/2020 TECHNIQUE: Multiplanar multisequence MRI of the brain was obtained both with and without the use of 6 .5 mL Gadavist utilizing pituitary mass protocol. FINDINGS: No restricted diffusion to suggest acute or subacute infarct. No pathologic blooming artifact on the T2 star series. There is no acute intracranial hemorrhage, midline shift, abnormal extra-axial collec tion, hydrocephalus or intracranial mass. No significant T2/FLAIR signal abnormalities of the brain p arenchyma. Postoperative changes of prior transsphenoidal pituitary surgery. Partially empty sella. N o suspicious lesion within the suprasellar distribution. No abnormal intra-axial or extra-axial enhan cement. Interval venous sinuses and major arterial flow voids at the level the skull base appear lorenzo nt. 1.6 cm area of polypoid mucosal thickening involves the left maxillary sinus. Mastoid air cells a re clear. The skull, orbits and soft tissues are unremarkable. IMPRESSION: 1. No acute intracranial abnormality. 2. No abnormal enhancement. 3. Postoperative changes of prior transsphenoidal pituitary surgery. ACT 112: Negative or not required by law. The above report was generated using voice recognition software. It may contain grammatical, syntax o r spelling errors. Electronically signed by: Haresh Braga M.D. 01/05/2020 8:28 AM
--- NOTE | 2020-01-05 09:15 | Consultation Report ---
DATE OF CONSULTATION: 01/05/2020 REASON FOR CONSULTATION: Pancytopenia unexplained. HISTORY OF PRESENT ILLNESS: The patient is a pleasant 39-year-old female patient who was admitted to [facility] yesterday with severely low blood sugar fainting with associated unconsciousness. She had undergone surgery in [place], [place]. She estimates 13 years ago but does not remember exactly why. She continues thyroid replacement, hydrocortisone; however, relates discontinuing these medications several years ago and has felt reasonably well. 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 According to clinical notes, the patient is a mother of 2 children, currently going through a divorce and has been under a great deal of stress. She was subsequently brought to [facility]'s Emergency Room, underwent CT scan of the head as well as chest x-ray. There is no acute intracranial anomaly on CAT scan and chest x-ray revealed no acute pulmonary findings. A battery of laboratories were also drawn, which revealed a WBC count of 3970, hemoglobin 9.8, platelet count of 98,000. All numbers which has slightly improved since her admitting measurement 1 day prior. Her absolute neutrophil count was 850. Specifically, I asked the patient if there were any previous hematologic issues which she strenuously denied. PAST MEDICAL HISTORY: Again, significant for a pituitary surgery with hormone replacement therapy. She relates no other chronic illnesses. SOCIAL HISTORY: Again, going through a divorce at present. 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 She has 2 children. She is nonsmoker, nondrinker. FAMILY HISTORY: Noncontributory. CURRENT MEDICATIONS: None. ALLERGIES: None. REVIEW OF SYSTEMS: CONSTITUTIONAL: As per HPI, negative for fevers, chills or flu-like symptoms. She relates cold intolerance. No anorexia or weight loss. SKIN: No rashes or lesions. No history of dermatoses. HEENT: She denies headaches, lightheadedness or dizziness. No dysphagia or sore throat. LYMPH: No history of lymphoproliferative disease. CARDIAC: No history of coronary artery disease, no angina or palpitations. PULMONARY: No history of COPD. She is not short of breath, dyspneic or orthopneic. No cough or hemoptysis. GASTROINTESTINAL: Negative for abdominal pain, nausea, vomiting, diarrhea or constipation, hematochezia or melena stools. GENITOURINARY: No hematuria, dysuria, urinary incontinence. PSYCHIATRIC: Negative for anxiety or depression. ENDOCRINE: Positive for pituitary disease status post pituitary surgery and subsequent replacement with hydrocortisone and thyroid replacement therapy, which has been discontinued by the patient. NEUROLOGIC: Negative for seizure, stroke, or migraine headache. MUSCULOSKELETAL: No arthralgias or myalgias. No muscle weakness. HEMATOLOGIC: Positive for pancytopenia. PHYSICAL EXAMINATION: GENERAL: Very pleasant 39-year-old female, in no acute distress. VITAL SIGNS: Temperature 36.4, pulse 90, respiratory rate 18, blood pressure 94/64. SKIN: Warm, dry, noncyanotic without petechia, rash or ecchymosis. HEENT: Atraumatic, normocephalic. Eyes: PERRLA, EOMI. Sclerae nonicteric. No conjunctival injection. Nares are patent without rhinorrhea or discharge. Throat is clear. Tongue is midline. Mucous membranes are moist. NECK: Supple without JVD or thyromegaly. LYMPHATICS: No cervical or supraclavicular palpable nodes. HEART: Regular rate and rhythm. No clicks, rubs, murmurs or gallops. LUNGS: Clear to auscultation bilaterally. ABDOMEN: Soft, nontender, nondistended, without palpable hepatosplenomegaly. EXTREMITIES: No calf tenderness or swelling. No clubbing, cyanosis or edema. NEUROLOGICALLY: She is awake, alert and oriented x3. Cranial nerves are grossly intact. LABORATORY AND RADIOGRAPHIC DATA: As described in the HPI. IMPRESSION: 1. Hypoglycemia. 2. Syncope. 3. Pancytopenia. 4. Acute adrenal crisis. PLAN: I have been asked to investigate the patient's pancytopenia. The patient herself relates no history of hematologic disease in the past. Thus, I would conclude she is myelosuppressed perhaps because of her adrenal crisis versus some underlying infectious process, yet to be determined. Her WBCs and platelets have both improved since entering the hospital. Less likely is a hematologic malignancy or perhaps aplastic anemia. I am very comfortable with ongoing medical management to continue observation and would like to see her peripheral counts on a daily basis. I would be more than happy to follow this young lady as an outpatient as well. Again, in anticipation of count normalization over time. Obviously, if there is further decline, then we would consider bone marrow biopsy and aspiration at some point to rule out aplastic anemia. There does not appear to be any significant anomalies within the white cell differential other than her borderline low neutrophil count. We will continue to periodically follow her. Thank you for allowing me to participate in her care. Elemental studies were also done. She is not B12 or folate deficient.
--- NOTE | 2020-01-05 10:35 | Hospitalist Progress Note ---
Date of Service January 05, 2020 Assessment & Plan Admission and Anticipated Discharge Date Admission Date: January 04, 2020 Results & Data Results & Data ([facility]) Vital Signs (Past 12 Hours) Vital Signs Temp Pulse Pulse Resp BP Pulse Ox 01/05/20 09:17 84 01/05/20 07:45 36.4 C L 90 18 94/64 L 98 01/05/20 04:07 36.3 C L 85 18 89/60 L 99 01/04/20 22:49 36.7 C 94 H 18 97/65 L 99
[2020-01-05] MEDS: HEPARIN SOD 5,000 UNIT/0.5 ML VIAL SQ SCH (11:53)
--- NOTE | 2020-01-05 13:13 | Medical Student Progress Note ---
Date of Service January 05, 2020 Assessment & Plan (1) Acute adrenal crisis: Pt had a blood glucose in the 20s in the ambulance and presented with a blood glucose of 56 to the ER. Pt received dextrose infusion. Today pt has a blood glucose of 218. Pt admits to increased stress leading up to collapse. Continue to monitor blood glucose level. Keep pt on D5NSS. Present on Admission?: Yes (2) Panhypopituitarism: Pt has history of pituitary surgery and was formally placed on levothyroxine and hydrocortisone which she has not taken for the past 5 years with no symptoms. Today pt has a low TSH, T4, prolactin, and cortisol. CT of head showed no acute intracranial abnormalities. MRI showed an unremarkable appearance of postsurgical sella. Dr. Elizabeth from endocrinology will be consulted for determining the proper dosages for hormone replacement therapy. Since compliance was an issue in the past, the purpose and importance of her outpt medication therapy needs to be stressed to the pt prior to discharge. Present on Admission?: Yes (3) Pancytopenia: Pt presented with pancytopenia with a WBC of 3.97, RBC of 3.36 with an MCV of 88.1, and platelet count of 98. Pancytopenia might be a result of her acute adrenal crisis and is not low enough to warrant workup at this time. Once hormone replacement therapy is adm inistered, CBC will be monitored for changes, and workup will be considered if this fails to resolve. Present on Admission?: Yes (4) Rhabdomyolysis: Pt presented with a high creatinine (1.35) a BUN of 9, and CPK of 3763 Fluids will continue to be administered and Cr and BUN will be monitored for worsening or improving condition. Pt's electrolytes and CPK will be monitored. Present on Admission?: Yes Admission and Anticipated Discharge Date Admission Date: January 04, 2020 DVT Prophylaxis: None Code status: Full code FEN: D5NSS 100 mls/hr .Q10H 10 HR, regular diet Subjective Pt is a 39-year-old female with a history of pituitary surgery via transsphenoidal resection who presents to the ED via EMS with report of being found unresponsive this morning in her house, and was reportedly hypoglycemic with a blood sugar level of 22. Pt remembers getting in the bed, using the restroom, then the next thing she remembers she was in the ambulance. Pt was discovered when she was late to work and coworker came to check on her and found her there. Pt doesnt know the time frame for how long she was lying on the ground. Pt Remembers being very cold upon arrival to the hospital. Pt had pituitary surgery 13 years ago for a mass that caused in right sided hemianopsia of the right eye and headaches. Two surgeries were required which resolved her vision and headache symptoms. Pt was given hydrocortisone and levothyroxine which she was compliant with for 8 years without symptoms. When the pt moved, she stopped taking the medications because she was "feeling fine". Pt had not taken her medications or seen a primary care physician for the last five years without any symptoms. Over the last two months she has been dealing with a divorce from her ex-. She states that he has been belligerent and not paying her for things. She has two kids (19 and 13 year old boys) that she has custody of at this moment. Pt had to leave her rental home because she could not afford the payments and spent the last week in a friend's camper. She has been under a tremendous amount of stress prior to her collapse. Pt denies taking any medications or any alcohol, tobacco, or drug use. Pt denies any ongoing medical problems. Review of Systems Respiratory: Denies shortness of breath Cardiovascular: no chest pain and no palpitations Gastrointestinal: no abdominal pain, no constipation and no diarrhea/loose stools Pt had a bowel movement this morning Genitourinary: no dysuria Pt has increased urinary frequency. Integumentary: no rash No changes in her complexion Neurologic: no tingling and no paresthesia Psychiatric: + anxiety Physical Exam Eyes: PERRL, EOM intact Respiratory: normal respiratory effort, lungs clear to auscultation Cardiovascular: RRR, no murmur, no edema Vessels: no carotid bruit Gastrointestinal (Abdomen): normal bowel sounds, soft, nontender, no hepatosplenomegaly Negative alfaro's sign. No flank pain Skin: no rashes Skin is cool and dry Neurologic: deep tendon reflexes 2+ bilaterally Results & Data ([facility]) Vital Signs (Past 12 Hours) Vital Signs Temp Pulse Pulse Resp BP Pulse Ox 01/05/20 11:58 36.7 C 91 H 16 96/64 L 98 01/05/20 09:17 84 01/05/20 07:45 36.4 C L 90 18 94/64 L 98 01/05/20 04:07 36.3 C L 85 18 89/60 L 99
[2020-01-05] MEDS ORDERED: SODIUM CHLORIDE 0.9% 1000ML 1,000 ML IV SCH (14:45)
--- NOTE | 2020-01-05 15:30 | Discharge Summary ---
Date of Service January 05, 2020 Admission HPI Per Admitting Provider Allie Green is a 39yo F with a history of pituitary surgery who presents after being found down with a BSG of 22 at her home. Allie reports she does not remember passing out, and has felt well in the previous few days. She reports she has a history of pituitary surgery and panhypopituitarism. She had Pituitary surgery at [facility] in [place] 13 years ago, but does not remember why. She reports that she was on thyroid replacement and hydrocortisone but stopped taking these medications 5 years ago and has overall felt "okay ". She reports that she has not had any fevers, chills, sweats, shortness of breath, syncope, presyncope, difficulty breathing, dizziness when standing, palpitations, or leg/eye swelling before day of admission, but notes that her hair does tend to fall out and her skin is often very dry. She reports she has 2 children at home who are in good health and have not been sick. She reports that she has been under very high level of stress and is currently going through a divorce, which has been very stressful to her but otherwise feels that her health has been good. 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 Denies other medical history Medications: Endorses past use of thyroid replacement hydrocortisone with no use in the last 5 years. Denies other medications Allergies: Denies medication allergies Surgical history: Pituitary surgery, denies other surgery CODE STATUS: Full code Admission Exam Per Admitting Provider General: Alert and oriented x3, appears fatigued with some psychomotor slowing. No acute distress. Cooperative. Skin: Cool, dry. No hyperpigmentation. HEENT: Atraumatic, normocephalic. Visual acuity grossly intact. Pupils equal and responsive to light and accommodation. Hearing grossly intact. Pulm: CTAB A&P. -wheezes, -rales, -rhonchi. Symmetrical chest rise. No increase work of breathing. No respiratory distress. Cardiac: RRR, -mrg. Radial pulses intact and symmetrical. RUE: 5/5 Shoulder internal rotation, external rotation, flexion, extension, abduction, adduction 5/5 Elbow flexion/extension, wrist flexion/extension 5/5 instant printer operator strength, finger flexion/extension, interosseus LUE: 5/5 Elbow flexion/extension, wrist flexion/extension 5/5 instant printer operator strength, finger flexion/extension, interosseus RLE: 5/5 to hip flexion/extension, ankle dorsiflexion/plantarflexion LLE: 5/5 to hip flexion/extension, ankle dorsiflexion/plantarflexion SENSORY: Normal to touch in upper and lower extremities without deficit or asymmetry Principal Diagnosis Panhypopituitarism Discharge Exam Constitutional WD/WN, vitals as above no acute distress Respiratory normal respiratory effort, lungs clear to auscultation Cardiovascular RRR, no murmur, no edema Heart Sounds: normal S1 and normal S2 Gastrointestinal (Abdomen) normal bowel sounds, soft, nontender, no hepatosplenomegaly Skin no rashes, warm and dry Neurologic PERRL, EOMI, accommodation nl, no face palsy, no dysarthria Psychiatric A+Ox3, euthymic affect Discharge Data Allergies Allergy/AdvReac Type Severity Reaction Status Date / Time No Known Allergies Allergy Unverified 01/04/20 11:09 Consultations 01/04/20 13:04 ED Decision to Admit Stat 01/04/20 15:54 Consult Hematology Routine Ordered Studies 01/04/20 10:25 CT head/brain wo con Stat 01/05/20 00:01 MR brain pituitary wo/w con Urgent Hospital Course (1) Panhypopituitarism: Allie Green is a 39yo F with a PMHx of pituitary surgery who presents after she was found down with a glucose of 22. Acute decompensation adrenal crisis sec to ?emotional stress in setting of h/o Chronic Panhypopituarism with noncompliance of 5 yrs - Random Cortisol undetectable - Pt previously on hydrocortisone and thyroid replacement, pt reported she has not taken any of her medications in ~5 years. - Glucose 22 in field by EMS, 120's on D10 - TSH undetectable - fT4 undetectable - MRI: 1. No acute intracranial abnormality. 2. No abnormal enhancement. 3. Postoperative changes of prior transsphenoidal pituitary surgery. - Renin, aldosterone pending - Prolactin <0.30 - ACTH pending - Hydrocortisone 25mg/kg/day as 4 divided doses (1,200mg TDD = 300mg Q6H) in hospital - Blood pressure 110/82 on admission - Per phone discussion with endocrinology, patient discharged on: - prednisone 7.5mg daily - levothyroxine 75mcg daily - Outpatient f/u with beauty culturist apprentice encouraged - Encourage finding a PCP, patient provided with options regarding primary care Hypoglycemia BSG 22 on admission in the setting of panhypopituitarism Received Dextrose infusion. BSG normal in later hospital stay. Pancytopenia with neutropenia - No clear etiology - Normocytic - B12/folate WNL - Lyme negative, Babesia pending, anaplasmosis smear negative - Anaplasmosis DNA pending - Hematology consult: - I would conclude she is myelosuppressed perhaps because of her adrenal crisis versus some underlying infectious process, yet to be determined. Her WBCs and platelets have both improved since entering the hospital. Less likely is a hematologic malignancy or perhaps aplastic anemia. - I would be more than happy to follow this young lady as an outpatient as well. Again, in anticipation of count normalization over time. Hypokalemia - Repleted to normalization Diet: Regular Disposition: Home CODE STATUS: Full code Total Time Total Time Spent Total Time Spent (In Minutes): see Attending attestation Discharge Plan Discharge Items Patient Disposition: Home - Self-Care Reason For Visit: BSG22,PANHYPOPITUITARISM Discharge Diagnosis: Hypoglycemia, panhypopituitarism Activity: Per Instructions section Non-emergency contact: Primary Care Provider and Specialist Call non-emergency contact if: you have any medication questions and your symptoms worsen Follow-up/Referrals: Garrett Ortiz MD [Resident] - 01/11/20 3:30 pm PCP,NO [Primary Care Provider] - Diet: Regular Addtl Attending Provider Instructions: You came to [facility] because you were found unresponsive in your home and your blood sugar was at 22. Upon evaluation it was found that you had undetectable thyroid hormone as well as undetectable cortisol. This is related to the removal of your pituitary 13 years ago. At that point you had been started on hydrocortisone as well as levothyroxine to replace these hormones. However, you reported that upon moving to [place] 5 years ago, you had not followed up with a physician and had stopped taking these medications. It is likely that this combined with the recent stress in your life set off your current episode. You had hydrocortisone given in the hospital, which should have repleted your stores of this hormone. You will be discharged on prednisone pills, which you should keep taking indefinitely. You will also need to restart your thyroid medications indefinitely. It is recommended that you follow up both with a primary care provider in the area, as well as an beauty culturist apprentice. If you would like to establish primary care with me, Dr. Garertt Ortiz, as an outpatient you can call the [facility] at and ask to be scheduled with me. Otherwise, any of our providers would be happy to see you. Pending Studies at Discharge: Yes Stand-Alone Forms: [facility], Smoking Cessation Medications and DC Order Prescriptions: New prednisone 2.5 mg tablet 7.5 mg PO DAILY Qty: 90 RF: 3 levothyroxine 75 mcg tablet 75 mcg PO DAILY Qty: 30 RF: 3 No Action No Known Home Medications RF: 0 Discharge Orders: Discharge Order (Routine); Ordered 01/05/20 Ordered By: Garrett Ortiz Admission Data Admit Date/Time: 01/04/20 14:33 Attending Provider: Kelly Pina Admit Provider: Jose Luis Montanez Primary Care Provider: PCP,NO Other Providers: Jose Marti V. ; Jose Luis Montanez Supervising Physician Co-Signing Physician Notes Resident Physician Supervision Note: I independently interviewed and examined the patient and verified the luu history and physical, reviewed labs and image studies, discussed the case with the resident Dr. Ortiz and agree with the findings and care plan. Resident Activity Tracking Resident Involvement: Resident Care Provided Care Provided: Adult Hospital Medicine
[2020-01-07 17:16] LABS: Babesia microti DNA Not Detected (Not Detected)
[2020-01-09 15:36] LABS: Adrenocorticotropic Hormone <5 pg/mL (6-50); Growth Hormone <0.1 ng/mL (<=7.1); Renin Activity 0.25 ng/mL/h (0.25-5.82)
== END 2020-01-05 18:35 | disposition home or self-care (01) | DRG 644 ==
LOC: ED 10:05 → 2S 14:33 → SUATTDRO 14:33 → 2S 15:13